=== PATIENT | male | born 2000 | race Caucasian/White ===

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

== ENCOUNTER 2018-03-07 17:16 | Emergency (ER) | payer OTHER ==
[2018-03-07 17:34] VITALS: BP 123/67
--- NOTE | 2018-03-07 18:07 | UC ---
Complaint Male HPI - HPI Summary HPI Summary: The patient is a 17-year-old male that presents here with a one-week history of mild increased frequency of urination and mild dysuria. His penis. He is uncircumcised. - History of Current Complaint Chief Complaint: UCGU Stated Complaint: PERSONAL Time Seen by Provider: 03/07/18 17:36 Hx Obtained From: Patient Onset/Duration: Gradual Onset, Lasting Days Timing: Intermittent Severity Initially: Mild Severity Currently: None Pain Intensity: 0 Pain Scale Used: 0-10 Numeric Character: Burning Aggravating Factor(s): Voiding Associated Signs And Symptoms: Positive: Negative - Allergies/Home Medications Allergies/Adverse Reactions: Allergies Allergy/AdvReac Type Severity Reaction Status Date / Time No Known Allergies Allergy Verified 03/07/18 17:31 Home Medications: Home Medications Acetaminophen [Pain Reliever] 500 mg PO ONCE 03/07/18 [History Confirmed ] PMH/Surg Hx/FS Hx/Imm Hx Previously Healthy: Yes - Surgical History Surgical History: Yes Surgery Procedure, Year, and Place: LEFT THUMB LAC REPAIR 2003 [facility] [place]. APPENDECTOMY 2007 [facility]. Right knee--2014 - Family History Known Family History: Positive: Hypertension Negative: Diabetes - Social History Alcohol Use: Weekly Substance Use Type: None Smoking Status (MU): Never Smoked Tobacco Review of Systems All Other Systems Reviewed And Are Negative: Yes Constitutional: Positive: Negative Skin: Positive: Negative Eyes: Positive: Negative ENT: Positive: Negative Respiratory: Positive: Negative Cardiovascular: Positive: Negative Gastrointestinal: Positive: Negative Genitourinary: Positive: Dysuria, Frequency Motor: Positive: Negative Neurovascular: Positive: Negative Musculoskeletal: Positive: Negative Neurological: Positive: Negative Psychological: Positive: Negative Physical Exam Triage Information Reviewed: Yes Appearance: Well-Appearing, No Pain Distress, Well-Nourished Vital Signs: Initial Vital Signs Temp 98.1 F 03/07/18 17:29 Pulse 74 03/07/18 17:29 Resp 16 03/07/18 17:29 BP 123/67 03/07/18 17:29 Pulse Ox 100 03/07/18 17:29 Vital Signs Reviewed: Yes Eyes: Positive: Conjunctiva Clear ENT: Positive: Hearing grossly normal. Negative: Nasal congestion, Nasal drainage, Trismus, Muffled voice, Hoarse voice Neck: Positive: Supple, Nontender Respiratory: Positive: Lungs clear, Normal breath sounds, No respiratory distress Cardiovascular: Positive: RRR, No Murmur Abdomen Description: Positive: Nontender, No Organomegaly, Soft Male Genital Exam: Positive: Other - mild erthyema around meatus. Negative: Lesions, Testicular Tenderness (R), Testicular Tenderness (L), Urethral Discharge Musculoskeletal: Positive: ROM Intact, No Edema Neurological: Positive: Alert Psychological Exam: Normal Skin Exam: Normal Complaint Male Course/Dx - Differential Dx/Diagnosis Provider Diagnosis: Balanitis Discharge - Sign-Out/Discharge Documenting (check all that apply): Patient Departure All imaging exams completed and their final reports reviewed: No Studies - Discharge Plan Condition: Stable Disposition: HOME Prescriptions: Fluconazole 150 MG (NF) [Diflucan 150 mg (NF)] 150 mg PO ONCE #1 tab Patient Education Materials: [place] (ED) Referrals: Tricia Teixeira MD [Primary Care Provider] - Additional Instructions: tests pending - Billing Disposition and Condition Condition: STABLE Disposition: Home
--- NOTE | 2018-03-09 13:33 | UC ---
- Progress Note Progress Note: please call the pt. with the + Chlamydia culture will ERx Zithromax 1000 mg x 1 Course/Dx - Diagnoses Provider Diagnoses: Balanitis Discharge - Sign-Out/Discharge Documenting (check all that apply): Patient Departure All imaging exams completed and their final reports reviewed: No Studies - Discharge Plan Condition: Stable Disposition: HOME Prescriptions: Azithromycin TAB* [Zithromax TAB (Z-JAMAL) 250 mg #6 tabs] 1,000 mg PO DAILY #4 tab Fluconazole 150 MG (NF) [Diflucan 150 mg (NF)] 150 mg PO ONCE #1 tab Patient Education Materials: [place] (ED) Referrals: Tricia Teixeira MD [Primary Care Provider] - Additional Instructions: tests pending - Billing Disposition and Condition Condition: STABLE Disposition: Home
== END 2018-03-07 18:12 | disposition home or self-care (01) ==
LOC: UCCORT 17:16
DX: N48.1 Balanitis (principal); A56.2 Chlamydial infection of genitourinary tract, unspecified
CPT/HCPCS: 81003; 87086; 87491; 87591; 99212; G0463

== ENCOUNTER 2019-01-28 12:53 | Emergency (ER) | payer OTHER ==
[2019-01-28] MEDS ORDERED: diPHENhydraMINE PO* 50 MG PO ONE (14:10)
--- NOTE | 2019-01-28 14:11 | ED ---
Allergic Reaction/Systemic - HPI Summary HPI Summary: Patient is a 18 y/o M presenting to [facility] with complaints of right lower lip swelling and generalized pruritus. Lip swelling lasted 30 minutes today, , and spontaneously resolved. After swelling resolved, pruritus onset. Pruritus has not worsened since onset and is still present. SOB, throat swelling are not reported. He states that he did not take any medications [employer]. No similar prior episodes are noted. He denies new foods, laundry detergents, soaps, and changes to routine. PMHx is denied. PSHx of two right knee surgeries reported. Vitals in room are pulse 74, BP 124/82, o2 99. Home medications and allergies are reviewed. - History of Current Complaint Chief Complaint: EDAllergicReaction Time Seen by Provider: 01/28/19 14:02 Hx Obtained From: Patient Onset/Duration: Still Present - pruritus, Resolved - lip swelling Timing: Intermittent - lip swelling Severity Currently: None Pain Intensity: 0 Pain Scale Used: 0-10 Numeric Location: Diffuse - pruritus Character: Swelling - lip, Pruritus Associated Signs And Symptoms: Negative: Difficulty Breathing, Throat Tightening - Allergies/Home Medications Allergies/Adverse Reactions: Allergies Allergy/AdvReac Type Severity Reaction Status Date / Time No Known Allergies Allergy Verified 01/28/19 13:01 PMH/Surg Hx/FS Hx/Imm Hx Endocrine/Hematology History: Denies: Hx Diabetes Cardiovascular History: Denies: Hx Hypertension, Hx Pacemaker/ICD History: Denies: Hx Renal Disease Sensory History: Reports: Hx Contacts or Glasses - CONTACTS- INSTRUCTS GIVEN Denies: Hx Hearing Aid Opthamlomology History: Reports: Hx Contacts or Glasses - CONTACTS- INSTRUCTS GIVEN Psychiatric History: Denies: Hx Panic Disorder - Surgical History Surgery Procedure, Year, and Place: LEFT THUMB LAC REPAIR 2003 [facility] [place]. APPENDECTOMY 2007 [facility]. Right knee--2014 Hx Anesthesia Reactions: No Infectious Disease History: No Infectious Disease History: Denies: Traveled Outside the [place] in Last 30 Days - Family History Known Family History: Positive: Hypertension Negative: Diabetes - Social History Alcohol Use: Weekly Substance Use Type: Reports: None Smoking Status (MU): Never Smoked Tobacco Review of Systems ENT: Other - negative - throat swelling Negative: Shortness Of Breath Positive: Edema - right lower lip Skin: Other - positive - diffuse pruritus All Other Systems Reviewed And Are Negative: Yes Physical Exam - Summary Physical Exam Summary: Appearance: The patient is well-nourished in no acute distress and in no acute pain. Skin: The skin is warm and dry, and skin color reflects adequate perfusion. HEENT: The head is normocephalic and atraumatic. The pupils are equal and reactive. The conjunctivae are clear and without drainage. Nares are patent and without drainage. Mouth reveals moist mucous membranes, and the throat is without erythema and exudate. The external ears are intact. The ear canals are patent and without drainage. The tympanic membranes are intact. Neck: The neck is supple with full range of motion and non-tender. There are no carotid bruits. There is no neck vein distension. Respiratory: Chest is non-tender. Lungs are clear to auscultation and breath sounds are symmetrical and equal. Cardiovascular: Heart is regular rate and rhythm. There is no murmur or rub auscultated. There is no peripheral edema and pulses are symmetrical and equal. Abdomen: The abdomen is soft and non-tender. There are normal bowel sounds heard in all four quadrants and there is no organomegaly palpated. Musculoskeletal: There is no back tenderness noted. Extremities are non-tender with full range of motion. There is good capillary refill. There is no peripheral edema or calf tenderness elicited. Neurological: Patient is alert and oriented to person, place and time. The patient has symmetrical motor strength in all four extremities. Cranial nerves are grossly intact. Deep tendon reflexes are symmetrical and equal in all four extremities. Psychiatric: The patient has an appropriate affect and does not exhibit any anxiety or depression. Triage Information Reviewed: Yes Vital Signs On Initial Exam: Initial Vitals Temp Pulse Resp BP Pulse Ox 99.5 F 79 16 151/83 99 01/28/19 12:58 01/28/19 12:58 01/28/19 12:58 01/28/19 12:58 01/28/19 12:58 Vital Signs Reviewed: Yes Procedures - Sedation Patient Received Moderate/Deep Sedation with Procedure: No Diagnostics - Vital Signs Vital Signs Temp Pulse Resp BP Pulse Ox 01/28/19 14:00 64 17 97 01/28/19 13:45 78 19 99 01/28/19 13:44 82 124/82 97 01/28/19 12:58 99.5 F 79 16 151/83 99 - Laboratory Lab Statement: Any lab studies that have been ordered have been reviewed, and results considered in the medical decision making process. Allergic Reaction Course/Dx - Course Course Of Treatment: Mr. Sanchez woke up with swelling in his right upper lip which is since resolved. It only lasted about a half an hour and resolved begin to be itchy all over. He was nontoxic in appearance with stable vitals here. Lungs are clear and is posterior pharynx was open. He was given some Benadryl and observed for a period time. He just improved and no further issues. It's unclear what led to this point I recommended he keep some Benadryl handy and he may need further workup problems continue. - Diagnoses Provider Diagnoses: Allergic reaction Discharge ED - Sign-Out/Discharge Documenting (check all that apply): Patient Departure - discharge - Discharge Plan Condition: Stable Disposition: HOME Patient Education Materials: Allergies (ED) Referrals: [facility] [Outside] Additional Instructions: PLEASE RETURN TO ED FOR ANY NEW OR CONCERNING SYMPTOMS. PLEASE FOLLOW UP WITH YOUR PRIMARY CARE PHYSICIAN WITHIN THREE DAYS. - Billing Disposition and Condition Condition: STABLE Disposition: Home - Attestation Statements Document Initiated by Karsonibe: Yes Documenting Scribe: SAMEER ECHOLS Provider For Whom Iveth is Documenting (Include Credential): EZEQUIEL LAZARO MD Scribe Attestation: ISAMEER, scribed for EZEQUIEL LAZARO MD on 01/28/19 at 2049. Scribe Documentation Reviewed: Yes Provider Attestation: The documentation as recorded by the SAMEER lincoln accurately reflects the service I personally performed and the decisions made by me, EZEQUIEL LAZARO MD Status of Scribe Document: Viewed
[2019-01-28 15:53] VITALS: BP 115/69
== END 2019-01-28 16:08 | disposition home or self-care (01) ==
LOC: ED 12:53
DX: L29.9 Pruritus, unspecified (principal); T78.40XA Allergy, unspecified, initial encounter; X58.XXXA Exposure to other specified factors, initial encounter
CPT/HCPCS: 99282; A9270-GY